=== PATIENT | male | born 1965 | race Caucasian/White ===

== ENCOUNTER 2021-01-13 13:46 | Inpatient (IN) | payer BC ==
[~2021-01-13] VITALS: Ht 165.1 cm; Wt 91.8 kg
[2021-01-13 14:27] LABS: ABSOLUTE NEUTROPHILS 4.2 thou/uL (1.4-8.2); BASOPHILS 0.6 % (0.0-2.0); HEMATOCRIT 43.9 % (42.0-52.0); HEMOGLOBIN 15.1 gm/dL (14.0-18.0); LYMPHOCYTES 39.9 % (24.0-44.0); MCH 31.2 pg (26.0-34.0); MCHC 34.4 g/dL (28.0-37.0); MCV 90.9 fL (80.0-100.0); MONOCYTES 11.3 % (1.0-8.0); POLYS 47.2 % (36.0-66.0); RBC 4.83 mil/uL (4.50-6.00); RDW 12.8 % (10.5-14.5)
[2021-01-13 14:47] LABS: ANION GAP 10 mmol/L (7-16); BUN 19 mg/dL (7-18); CALCIUM 8.6 mg/dL (8.5-10.1); CHLORIDE 101 mmol/L (98-107); CO2 26 mmol/L (21-32); CREATININE 1.2 mg/dL (0.7-1.3); GLUCOSE 129 mg/dL (74-106); POTASSIUM 3.8 mmol/L (3.5-5.1); SODIUM 137 mmol/L (136-145)
[2021-01-13 14:52] LABS: ALBUMIN 3.8 g/dL (3.4-5.0); DIRECT BILIRUBIN < 0.1 mg/dL (<0.1-0.2); SGOT 49 U/L (15-37); SGPT 77 U/L (30-65); TOTAL BILIRUBIN 0.3 mg/dL (0.2-1.0); TOTAL PROTEIN 7.5 g/dL (6.4-8.2)
--- NOTE | 2021-01-13 15:17 | EKG ---
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 : 1965 Requested By: Lynn Dennis Order Number: [id number] MD: Brandan Chow Measurements Intervals [place] Rate: 70 P: 38 RI: 153 QRS: 15 QRSD: 102 T: -2 QT: 400 QTc: 432 Interpretive Statements Sinus rhythm Minimal ST depression, inferior leads Borderline ST elevation, lateral leads No previous ECG available for comparison Electronically Signed On 01-13-2021 15:16:36 CDT by Brandan Chow [email or web address] <ELECTRONICALLY SIGNED> By: Brandan Chow MD, [facility] 01/13/21 1516 1351 1351 Brandan Chow MD, FACC /EPI
[2021-01-13 15:24] LABS: PLATELET COUNT 245 thou/uL (150-400)
[2021-01-13 20:01] LABS: CHOLESTEROL 277 mg/dL (<200); HDL CHOLESTEROL 37 mg/dL (>40); LDL CHOLESTEROL 172 mg/dL (<100); TC:HDL 7.5 Ratio (Not establshd); TRIGLYCERIDE 341 mg/dL (<150); VLDL 68 mg/dL (<40)
[2021-01-13 20:06] LABS: SERUM ASSESSMENT Clear
[2021-01-13 20:23] VITALS: BP 134/84
[2021-01-13 21:05] VITALS: BP 132/77
[2021-01-13] MEDS ORDERED: CELEXA 10 MG TA10 M1 PO (21:38)
[2021-01-13] MEDS ORDERED: LISINOPRIL20 MG PO (21:39)
[2021-01-13] MEDS ORDERED: MELOXICAM15 MG PO (21:40)
--- NOTE | 2021-01-13 21:55 | NUR ---
PT DENIES CHEST PAIN AT TIME OF ADMISSION. INSTRUCTED TO CALL NURSE IF HE EXPERIENCES ANY CHEST PAIN. INSTRUCTED TO USE THE URINAL FOR INTAKE OUTPUT. SCD'S PLACED ON PT. MEDICATIONS STARTED ORDERED. PT TAKES AN ANTIANXIETY MEDICATION DAILY. HE IS RELAXED AT THIS TIME AND IS COOPERAITVE. HE SPOKE WITH DR. GRIFFITHS IN THE ED TONIGHT. HE HAS NO DISCHARGE CONCERNS.
[2021-01-13 23:18] VITALS: BP 112/70
[2021-01-14 04:20] VITALS: BP 133/75
[2021-01-14 05:48] LABS: HEMATOCRIT 43.6 % (42.0-52.0); HEMOGLOBIN 14.7 gm/dL (14.0-18.0); MCH 30.7 pg (26.0-34.0); MCHC 33.7 g/dL (28.0-37.0); MCV 91.1 fL (80.0-100.0); RBC 4.78 mil/uL (4.50-6.00); RDW 12.9 % (10.5-14.5); WBC 6.2 thou/uL (4.0-11.0)
[2021-01-14 06:35] LABS: CALCIUM 8.3 mg/dL (8.5-10.1); CREATININE 0.9 mg/dL (0.7-1.3); POTASSIUM 4.2 mmol/L (3.5-5.1)
[2021-01-14 08:20] VITALS: BP 112/79
--- NOTE | 2021-01-14 09:34 | 2DMMODE ---
[facility] [place] [address] 2 D/M-MODE ECHOCARDIOGRAM Name: GINNY PAUL Room #: 213-P ADM IN M.R.#: [id number] Admission: 01/13/21 Attend Phys: Whit Pozo MD Discharge: Date of : 61 Report #: [id number] THIS REPORT FOR: cc: FAM - Family physician unknown FAM - Family physician unknown Ermias Bear MD [facility] ~ APPROVED REPORT Study performed: 01/14/2021 08:53:39 EXAM: Comprehensive 2D, Doppler, and color-flow Echocardiogram Patient Location: Bedside Room #: 213 Status: routine BSA: 2.00 HR: 57 bpm BP: 133/75 mmHg Rhythm: NSR Other Information Study Quality: Adequate Technically limited study due to obesity. Indications Chest pain. Hx: HTN, COVID (04/2020). 2D Dimensions RVDd: 27.26 mm IVSd: 9.20 (7-11mm) LVOT Diam: 22.18 (18-24mm) LVDd: 47.88 mm PWd: 9.02 (7-11mm) Ascending Ao: 37.51 (22-36mm) LVDs: 32.97 (25-40mm) Left Atrium: 42.43 (27-40mm) Aortic Root: 32.68 mm Volumes Left Atrial Volume (Systole) Single Plane 4CH: 49.17 mL Single Plane 2CH: 44.13 mL LA ESV Index: 26.00 mL/m2 Aortic Valve AoV Peak Kiel.: 1.40 m/s AO Peak Gr.: 7.80 mmHg LVOT Max P.46 mmHg [facility] [address] [place] [address] 2 D/M-MODE ECHOCARDIOGRAM Name: GINNY PAUL Room #: 213-P [facility] IN M.R.#: [id number] Admission: 01/13/21 Attend Phys: Ck Kerns Discharge: Date of : 61 Report #: [id number] LVOT Max V: 0.93 m/s MELITA Vmax: 2.57 cm2 Mitral Valve E/A Ratio: 0.8 MV Decel. Time: 220.73 ms MV E Max Kiel.: 0.77 m/s MV A Kiel.: 0.91 m/s MV PHT: 64.01 ms IVRT: 92.27 ms Pulmonary Valve PV Peak Kiel.: 0.82 m/s PV Peak Gr.: 2.68 mmHg Pulmonary Vein P Vein S: 0.52 m/s P Vein A: 0.26 m/s P Vein D: 0.41 m/s P Vein A Dur.: 120.0 msec P Vein S/D Ratio: 1.27 Tricuspid Valve TR Peak Kiel.: 1.90 m/s TR Peak Gr.: 14.39 mmHg Left Ventricle The left ventricle is normal size. Regional wall motion is not well visualized but grossly normal. There is normal left ventricular wall thickness. Left ventricular systolic function is at the lower limits of normal LVEF is 45-50%. Mild diastolic dysfunction Right Ventricle The right ventricle is normal size. The right ventricular systolic function is normal. Atria The left atrium size is normal. The right atrium size is normal. Aortic Valve The aortic valve is normal in structure. No aortic regurgitation is present. There is no aortic valvular stenosis. Mitral Valve The mitral valve is normal in structure. Moderate mitral regurgitation. No evidence of mitral valve stenosis. Tricuspid Valve [facility] [address] [place] [address] 2 D/M-MODE ECHOCARDIOGRAM Name: GINNY PAUL Room #: 213-P ADM IN M.R.#: [id number] Admission: 01/13/21 Attend Phys: Ck Kerns Discharge: Date of : 61 Report #: [id number] The tricuspid valve is normal in structure. Trace tricuspid regurgitation. Estimated PAP is 20mmHg. Pulmonic Valve The pulmonary valve is normal in structure. Trace pulmonic regurgitation. Great Vessels The aortic root is normal in size. The ascending aorta is borderline dilated. IVC is not well visualized. <Conclusion> Left ventricular systolic function is at the lower limits of normal Regional wall motion is not well visualized but grossly normal. LVEF is 45-50%. Mild diastolic dysfunction The aortic valve is normal in structure. No aortic regurgitation or stenosis The mitral valve is normal in structure. Moderate mitral regurgitation. Trace tricuspid regurgitation. Estimated pulmonary artery pressure of 20mmHg. No pericardial effusion <ELECTRONICALLY SIGNED> By: Ermias Bear MD, FACC 01/14/21933 3 3 Ermias Bear MD, FACC /INF
--- NOTE | 2021-01-14 11:01 | NUR ---
Assumed care of pt this AM. Pt is A&O x4. Denies any chest pain currently. Pt NPO since midnight for echo & stress test today. Troponin level elevated from morning labs. Spoke w/ Dr. Pozo about level. BP medication held this AM for low pulse. SA on the monitor. Will continue to monitor pt.
[2021-01-14 15:27] VITALS: BP 124/74
[2021-01-14 19:47] VITALS: BP 136/86
[2021-01-14 23:15] VITALS: BP 123/77
[2021-01-15] VITALS (13 sets, daily range): BP systolic 115–144; BP diastolic 70–97
--- NOTE | 2021-01-15 05:30 | NUR ---
RECEIVED PATIENT AT 1900H.PATIENT IS ALERT AND ORIENTEDX4.ON ROOM AIR BREATHING SPONTANEOUSLY.NOT IN DISTRESS. NO COMPLAINTS OF CHEST PAIN.KEPT NPO AFTER MIDNIGHT.ALL NEEDS ATTENDED. FOR CARDIAC CATH TODAY
--- NOTE | 2021-01-15 11:12 | NUR ---
Assumed care of pt this AM. Pt is A&O x4 on RA. Denies any current chest pain. SA on the monitor. Plan to have cardiac cath today. Pt has been NPO since midnight. Pt currently off unit for cath.
[2021-01-15 15:35] LABS: HEMATOCRIT 42.5 % (42.0-52.0); HEMOGLOBIN 14.6 gm/dL (14.0-18.0); MCHC 34.2 g/dL (28.0-37.0); MCV 90.5 fL (80.0-100.0); RBC 4.7 mil/uL (4.50-6.00); RDW 13.1 % (10.5-14.5); WBC 7.1 thou/uL (4.0-11.0)
[2021-01-16 00:05] VITALS: BP 122/72
--- NOTE | 2021-01-16 06:45 | NUR ---
care assumed at 1900 patient heparin was on 10.75, appt was drawn at around 2300, appt was 34.8, increased drip 2 unit/kg/ hr and 5616 bolus given. at 0500 appt was 53.6 no change at this time. patient right groin area checked q 4 hours no swelling, no hematoma, or bleeding noted. patient aox4 makes needs known. patient denied pain or discomfort. patient is up at chao.patient in bed asleep aqt this time brething regular and unlaboured.
[2021-01-16 09:27] VITALS: BP 141/88
--- NOTE | 2021-01-16 12:24 | NUR ---
Assumed care of pt at 0700. Pt a&ox4. Denies pain. On heparin drip. Up ad chao. RA. No c/o at this time. Call light within reach. Will continue to monitor.
[2021-01-16 20:30] VITALS: BP 130/75
[2021-01-17] VITALS (13 sets, daily range): BP systolic 109–141; BP diastolic 68–107
--- NOTE | 2021-01-17 04:14 | NUR ---
PT AMBULATING TO BATHROOM INDEPENDENTLY AND IS TOLERATING WELL. TYLENOL PROVIDING HEADACHE RELIEF. RESTING COMFORTABLY. NO NEEDS VOICED. CALL LIGHT WITHIN REACH. FREQUENT OBSERVATION.
--- NOTE | 2021-01-17 11:53 | NUR ---
Assumed care of pt this AM. Pt is A&O x 4, on RA. Heparin gtt still running. Pt denies any current chest pain. SA on the monitor. Plan for cath today. Pt off unit @ 2510.
--- NOTE | 2021-01-17 13:45 | EKG ---
[address] [address] ELECTROCARDIOGRAM REPORT Name: GINNY PAUL Room #: 213-P ADM IN M.R.#: [id number] Admission: 01/13/21 Attend Phys: Whit Pozo MD Discharge: Date of : 61 Report #: [id number] [facility] Test Date: 2021-01-17 Test Time: 09:20:16 Pat Name: GINNY PAUL Department: Room: 213 P Gender: M Supervisor Production Department: JOlga : 1965 Requested By: Ermias Bear Order Number: [id number] MD: Ermias Bear Measurements Intervals [place] Rate: 60 P: 25 ND: 178 QRS: 52 QRSD: 99 T: 59 QT: 395 QTc: 395 Interpretive Statements Sinus rhythm Normal tracing Compared to ECG 01/13/2021 13:51:31 ST (T wave) deviation no longer present Electronically Signed On 01-17-2021 13:45:17 CDT by Ermias Bear [email or web address] <ELECTRONICALLY SIGNED> By: Ermias Bear MD, [facility] 01/17/21 1345 0920 9 Ermias Bear MD, FACC /EPI
--- NOTE | 2021-01-17 13:59 | CATHLAB ---
[facility] [place] [address] INVASIVE PROCEDURE REPORT Name: GINNY PAUL Room #: 213-P ADM IN M.R.#: [id number] Admission: 01/13/21 Attend Phys: Whit Pozo MD Discharge: Date of : 61 Report #: [id number] THIS REPORT FOR: cc: FAM - Family physician unknown FAM - Family physician unknown Ermias Bear MD [facility] ~ APPROVED REPORT Study performed: 01/17/2021 11:34:40 Patient Details Patient Status: In-Patient Room #: 213 The patient is a 55 year-old male Event Personnel Ermias Bear Storeroom Attendant, Scarlett Moyer RN RN, Jenna Saba RTR, ENGINE LATHE SET UP OPERATOR Monitor, Guy Rubin RT(R)(CV) Scrub Procedures Performed Art Access - R femoral artery* YANIV Place w/wo Plasty Single RCA 076289 YANIV Place w/wo Plasty Single DIAG 976151 57384 Initial Mod Sed Same Phys/QHP Gr5y 657196 90813 Mod Sed Same Phys/QHP Ea 211202 Hemostasis w/ Mynx Indication Chest pain Procedure Narrative The patient was brought urgently to the Cardiac Catheterization Laboratory and was prepped and draped in a sterile manner. The RFG^ was infiltrated with 1% Lidocaine subcutaneous anesthesia. A PINNACLE 6FR Sheath #[id number] sheath was inserted into the RFA^. Coronary angiography was performed using coronary diagnostic catheters. The right coronary system was accessed and visualized with a LAUNCHER 6FR JR 4 SH #[id number] catheter. The left coronary system was accessed and visualized with a LAUNCHER 6FR EBU 3.5 #[id number] catheter. Closure device was deployed with a 6 Fr MYNXGRIP 6/7F #[id number]. The patient tolerated the procedure well and there were no complications associated with the procedure. There was no hematoma. Intraoperative Conscious Sedation Sedation start time: 12:10 Case end Time: 13:25 [facility] [address] [place] [address] INVASIVE PROCEDURE REPORT Name: GINNY PAUL Room #: 213-P ADM IN M.R.#: [id number] Admission: 01/13/21 Attend Phys: Ck Kerns Discharge: Date of : 61 Report #: [id number] Fentanyl 100 mcg Versed 2.0 mg Fluoro Time: 13.29 minutes Dose: DAP 63500.30 cGycm2 2251 mGy Contrast Type and Amount: Omnipaque 315 ml Coronary Angiography The patient's coronary anatomy is right dominant. Diagnostic Cath Left Main Minimal distal left main plaquing LAD Mild LAD plaquing Diagonal 1 50-60% proximal diagonal branch stenosis followed by a severe 99% mid first diagonal branch stenosis involving a branch vessel Circumflex See results of recent diagnostic angiogram Right Coronary The right coronary is dominant with critical proximal to mid vessel stenosis with small proximal aneurysmal segment. 85% distal right coronary stenosis R PDA Normal posterior descending RPLV Normal posterior lateral branch Left Ventriculography Left Ventriculography was not performed. See prior full diagnostic study Hemodynamics The aortic pressure is 110/61 mmHg with a mean of 83 mmHg. PCI Technique Lesion Anticoagulation was achieved with Heparin, Integrilin. Patient was preloaded with Effient. Percutaneous coronary intervention was performed on the distal right coronary artery. The lesion stenosis prior to intervention was 85% with ARLETTE 3 flow. A LAUNCHER 6FR JR 4 SH #[id number] Guide Catheter was used to engage the right coronary ostium. A Luge Wire .014 x 182CM #[id number] Interventional Guidewire was used to cross the lesion. BALLOON DILATION A Balloon catheter Euphora RX 2.5 x 12 #[id number] was inserted and inflated up to 14.00atm for 30seconds. STENT DEPLOYMENT A drug-eluting stent RESOLUTE SIMONE RX 3.5 X 12 #[id number] was inserted and inflated up to 12.00atm for 31seconds. [facility] [address] [place] [address] INVASIVE PROCEDURE REPORT Name: HUMBERTOGINNY Room #: 213-P [facility] IN M.R.#: [id number] Admission: 01/13/21 Attend Phys: Ck Kerns Discharge: Date of : 61 Report #: [id number] POST STENT DEPLOYMENT BALLOON DILATION A Balloon catheter TREK NC RX 3.5 X 12 #[id number] was inserted and inflated up to 16.00atm for 30seconds. Final angiography reveals 0 % stenosis with ARLETTE 3 flow. PCI Technique Lesion 2 Percutaneous Coronary Intervention was performed on the proximal right coronary artery. The lesion stenosis prior to intervention was 99% with ARLETTE 2 flow. A LAUNCHER 6FR JR 4 SH #[id number] Guide Catheter was used to engage the right ostium. A Luge Wire .014 x 182CM #[id number] Interventional Guidewire was used to cross the lesion. Balloon Dilation A Balloon catheter Euphora RX 2.5 x 12 #[id number] was inserted and inflated up to 14.00atm for 24seconds. Additional Inflation: 14.00atm for 32seconds. Stent Deployment A drug-eluting stent RESOLUTE SIMONE RX 3.5 X 30 #[id number] was inserted and inflated up to 15.00atm for 23seconds. Post Stent Deployment Balloon Dilation A Balloon catheter TREK NC RX 3.5 X 12 #[id number] was inserted and inflated up to 16.00atm for 24seconds. Additional Inflation: 22.00atm for 26seconds. Additional Inflation: 22.00atm for 22seconds. Additional Inflation: 20 devendra for 10 seconds Final angiography reveals 0 % stenosis with ARLETTE 3 flow. PCI Technique Lesion 3 Percutaneous Coronary Intervention was performed on the first diagnonal branch segment. The lesion stenosis prior to intervention was 99% with ARLETTE 3 flow. A LAUNCHER 6FR EBU 3.5 #[id number] Guide Catheter was used to engage the ostium. A Luge Wire .014 x 182CM #[id number] Interventional Guidewire was used to cross the lesion. Balloon Dilation A Balloon catheter Euphora RX 2.5 x 12 #[id number] was inserted and inflated up to 12.00atm for 23seconds. Stent Deployment A drug-eluting stent RESOLUTE SIMONE RX 2.5 X 12 #[id number] was inserted and inflated up to 12.00atm for 60seconds. Additional Inflation: [facility] [address] [place] [address] INVASIVE PROCEDURE REPORT Name: GINNY PAUL Room #: 213-P ADM IN M.R.#: [id number] Admission: 01/13/21 Attend Phys: Ck Kerns Discharge: Date of : 61 Report #: [id number] 15.00atm for 30seconds. Post Stent Deployment Balloon Dilation A Balloon catheter mWaterK NC RX 2.5 X 12 #[id number] was inserted and inflated up to 18.00atm for 29seconds. Final angiography reveals 0 % stenosis with ARLETTE 3 flow. Conclusion 1. See full diagnostic angiogram performed several days earlier. 2. Severe distal right coronary stenosis stented with a 3.5 mm Resolute stent 3. Critical proximal right coronary stenosis stented with a 3.5 x 30 mm Resolute stent postdilated to close to 3.75 mm 4. Severe mid first diagonal branch stenosis stented with a 2.5 x 12 mm Resolute stent, angioplasty of a small involved branch vessel without residual stenosis Recommendations Cardiac Rehabilitation Referral [facility] <ELECTRONICALLY SIGNED> By: Ermias Bear MD, FACC 01/17/21 135 58 58 Ermias Bear MD, FACC /INF
[2021-01-18 04:45] VITALS: BP 114/73
[2021-01-18 05:16] LABS: ALBUMIN 3.1 g/dL (3.4-5.0); CALCIUM 8.7 mg/dL (8.5-10.1); CREATININE 0.9 mg/dL (0.7-1.3); POTASSIUM 4.4 mmol/L (3.5-5.1); TOTAL BILIRUBIN 0.3 mg/dL (0.2-1.0); TOTAL PROTEIN 6.7 g/dL (6.4-8.2)
[2021-01-18 05:22] LABS: HEMATOCRIT 42.5 % (42.0-52.0); HEMOGLOBIN 14.5 gm/dL (14.0-18.0); MCH 31.1 pg (26.0-34.0); MCHC 34.1 g/dL (28.0-37.0); MCV 91.1 fL (80.0-100.0); RBC 4.67 mil/uL (4.50-6.00); RDW 13.2 % (10.5-14.5); WBC 7.1 thou/uL (4.0-11.0)
--- NOTE | 2021-01-18 07:19 | EKG ---
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
[2021-01-18 07:40] VITALS: BP 135/85
--- NOTE | 2021-01-18 07:45 | NUR ---
PT AMBULATING TO BATHROOM INDEPENDENTLY AND IS TOLERATING WELL. TYLENOL PROVIDING RELIEF OF HEADACHE. RESTONG COMFORTABLY. NO NEEDS VOICED. CALL LIGHT WITHIN REACH. FREQUENT OBSERVATION.
[2021-01-18] MEDS ORDERED: ROSUVASTATIN CA20 MG PO (09:09)
[2021-01-18] MEDS ORDERED: LISINOPRIL10 MG PO (09:09)
[2021-01-18] MEDS ORDERED: BAYER CHEWABLE81 MG PO (09:09)
[2021-01-18] MEDS ORDERED: METOPROLOL TART25 MG PO (09:09)
[2021-01-18] MEDS ORDERED: EFFIENT10 MG PO (09:09)
--- NOTE | 2021-01-18 10:17 | HC ---
[facility] [place] [address] CONSULTATION Name: GINNY PAUL Room #: 213-P ADM IN M.R.#: [id number] Admission: 01/13/21 Attend Phys: Whit Pozo MD Discharge: Date of : 61 Report #: [id number] THIS REPORT FOR: cc: FAM - Family physician unknown FAM - Family physician unknown Ginny Carlin MD ~ DATE OF SERVICE: 01/15/2021 We were asked to see the patient by Dr. Reynolds. HISTORY OF PRESENT ILLNESS: The patient is a 55-year-old with coronary artery disease. The patient presents with chest pain. 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 The patient began to have chest pain radiating to the left arm at work yesterday and he sought help in our Emergency Department. The patient states that this is the first time that this has happened to him. Since admission, the patient had a nuclear stress test and today had cardiac catheterization. Cardiac catheterization showed a series of high-grade lesions in the right coronary artery up to 99%. There is also 95% disease in a bifurcating large diagonal artery. The LAD itself was read as showing 30% stenosis and circumflex has trivial disease. I did not see a left ventriculogram. A transthoracic echo showed an ejection fraction in the 45-50% range with no significant valvular dysfunction. PAST MEDICAL HISTORY: The patient has been treated for hypertension. He also takes meloxicam as needed for arthritis in his hands. MEDICATIONS AT HOME: Include citalopram, lisinopril, and meloxicam. ALLERGIES: None known. SOCIAL HISTORY: The patient has smoked in the past, but is not a current smoker. 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 REVIEW OF SYSTEMS: GENERAL: Denies fever or chills. EYES: Denies visual change. HENT: Denies headache, hearing problem, sinus problem. RESPIRATORY: Denies cough, shortness of breath, hemoptysis. [facility] [address] [place] [address] CONSULTATION Name: GINNY PAUL Room #: 213-P [facility] IN M.R.#: [id number] Admission: 01/13/21 Attend Phys: Whit Pozo MD Discharge: Date of : 61 Report #: [id number] CARDIAC: As mentioned, angina at work. Denies palpitations. GASTROINTESTINAL: Denies nausea, vomiting, abdominal pain. GENITOURINARY: Denies burning, frequency, urgency. MUSCULOSKELETAL: As mentioned, some arthritis in hands, controlled with medication. No other significant bone or joint problems. SKIN: No rash or infection. NEUROLOGIC: No motor or sensory dysfunction. ENDOCRINE: No goiter, no tremor. HEMATOLOGIC: No bruisability or bleeding. PHYSICAL EXAMINATION: GENERAL: The patient is lying in bed, awake, alert, seems comfortable. VITAL SIGNS: Temperature 36.7, heart rate 71, respiratory rate 16, blood pressure 121/77. HEENT: No scleral icterus. No arcus. NECK: No mass. No bruit. CHEST: Clear to auscultation. HEART: Rhythm regular. No murmurs audible. ABDOMEN: Mildly protuberant. No tenderness. EXTREMITIES: No clubbing, cyanosis or edema. Strong popliteal pulses bilaterally. No obvious saphenous vein problems. SKIN: No rash or infection. NEUROLOGIC: No motor or sensory dysfunction. MUSCULOSKELETAL: No obvious bone or joint asymmetry or deformity. PSYCHIATRIC: Oriented x 3. Shows insight into problem and is a pleasant fellow. ASSESSMENT AND PLAN: I reviewed the cardiac catheterization findings with the patient. I have and will continue to discuss them with Dr. Reynolds. Obviously, coronary bypass is an option with this patient. Left anterior descending has trivial disease and it would be a shame to utilize a mammary artery for something other than the LAD. If Dr. Reynolds feels that angioplasty is sufficiently complex, then surgery is certainly an option. It is a privilege to participate in this nice fellow's care. Thank you for the consult. <ELECTRONICALLY SIGNED> By: Ginny Carlin MD 01/18/21 1017 1546 0201 Ginny Carlin MD /nt
--- NOTE | 2021-01-18 11:16 | NUR ---
Assumed care of pt at 0700. Pt a&ox4. Denies pain. Up ad chao. Room air. Possible d/c to home today. Call light within reach. Will continue to monitor.
[2021-01-18 11:20] VITALS: BP 126/86
[2021-01-18] MEDS ORDERED: MUPIROCIN22 GM NASAL (12:34)
[2021-01-18] MEDS ORDERED: NITROGLYCERIN0.4 MG SUBLING (12:34)
[2021-01-18 12:54] VITALS: BP 126/86
== END 2021-01-18 14:36 | disposition home or self-care (01) | DRG 247 ==
LOC: ER 13:46 → EROBS 17:25 → 2N 17:25
PROVIDERS: Emergency Medicine; Internal Medicine; Nurse Practitioner Adult Health; ADMIT Hospitalist; ATTEND Hospitalist
PROC: 4A023N7 Measurement of Cardiac Sampling and Pressure, Left Heart, Percutaneous Approach (ICD-10-PCS; principal; 2021-01-17)
PROC: B2111ZZ Fluoroscopy of Multiple Coronary Arteries using Low Osmolar Contrast (ICD-10-PCS; principal; 2021-01-17)
PROC: 027136Z Dilation of Coronary Artery, Two Arteries with Three Drug-eluting Intraluminal Devices, Percutaneous Approach (ICD-10-PCS; principal; 2021-01-17)
DX: I21.4 Non-ST elevation (NSTEMI) myocardial infarction (principal); I25.10 Atherosclerotic heart disease of native coronary artery without angina pectoris; F41.9 Anxiety disorder, unspecified; I10 Essential (primary) hypertension; M19.042 Primary osteoarthritis, left hand; E66.9 Obesity, unspecified; M19.041 Primary osteoarthritis, right hand; G47.33 Obstructive sleep apnea (adult) (pediatric); E78.1 Pure hyperglyceridemia; E11.9 Type 2 diabetes mellitus without complications; R74.01 Elevation of levels of liver transaminase levels; Z20.822 Contact with and (suspected) exposure to COVID-19; Z86.16 Personal history of COVID-19; Z82.49 Family history of ischemic heart disease and other diseases of the circulatory system; Z68.33 Body mass index [BMI] 33.0-33.9, adult; Z23 Encounter for immunization
CPT/HCPCS: 10081; 10194